=== PATIENT | male | born 2005 | race Hispanic/Latino ===

== ENCOUNTER 2024-06-25 13:33 | Emergency (ER) | payer OTHER, SELFPAY ==
[2024-06-25 13:47] VITALS: BP 109/59; PULSE 65; RESP 16; TEMP 36.5; O2SAT 100; BMI 27.8
[2024-06-25 14:22] LABS: Strep Grp A by PCR Rapid Negative (Negative)
--- NOTE | 2024-06-25 14:51 | ED.URI ---
HPI - URI/Sore Throat General Chief Complaint: Upper Respiratory Symptoms Stated Complaint: Sore Throat, Pain, Swollen Tonsils Time Seen by Provider: 06/25/24 14:23 Source: patient Mode of arrival: Ambulatory History of Present Illness HPI Narrative: 19-year-old male has complaint of dry cough with some sore throat symptoms, had difficulty with some breathing last night, no use of inhalers, no history of asthma or chronic lung disease. No known exposure to persons known to have COVID or strep throat or influenza. [id number] Tylenol and Motrin helping some with the pain, though persisting. No trouble moving neck. No trouble swallowing. No change in voice. No injury or trauma to the neck, nor foreign body sensation neck. Related Data Previous Rx's Medication Instructions Recorded albuterol sulfate 90 mcg/actuation 2 puff inhalation Q6H PRN 06/25/24 aerosol inhaler shortness of breath or wheezing #8.5 grams Allergies Allergy/AdvReac Type Severity Reaction Status Date / Time No Known Drug Allergies Allergy Verified 06/25/24 13:59 Review of Systems Review of Systems Narrative: see HPI Patient History Social History Smoking Status: Former smoker Smoking Status: Former smoker Substance Use Type: does not use Exam Narrative Exam Narrative: GENERAL: Well-developed patient, in mild distress. HEAD: Atraumatic. Normocephalic. EYES: Pupils equal round and reactive. Extraocular motions intact. No scleral icterus. No injection or drainage. ENT: Nose without bleeding, purulent drainage. Oropharyngeal redness without obvious exudate, symmetrical tonsils, no uvular or palatal edema, normal phonation NECK: Trachea midline. Moves neck well CARDIOVASCULAR: Regular rate and rhythm without murmurs, gallops, or rubs. RESPIRATORY: Clear to auscultation. Breath sounds equal bilaterally. No wheezes, rales, or rhonchi. GASTROINTESTINAL: Abdomen soft, non-tender, nondistended. EXTREMITIES: No edema or joint tenderness. BACK: Nontender without deformity or crepitance. No flank tenderness. nNEURO: AOx3. Grossly onfocal neuro exam SKIN: No rash or erythema of visible areas Initial Vital Signs Initial Vital Signs: Vital Signs Temperature 97.7 F 06/25/24 13:47 Pulse Rate 65 06/25/24 13:47 Respiratory Rate 16 06/25/24 13:47 Blood Pressure 109/59 L 08/27/24 13:47 Pulse Oximetry 100 06/25/24 13:47 Oxygen Delivery Method Room Air 06/25/24 13:47 Course Orders Ordered: ED Orders 06/25/24 13:56 Strep Grp A by PCR Rapid Stat Throat Culture Stat Vital Signs Vital signs: Vital Signs - 8 hr 06/25/24 13:47 06/25/24 15:13 Temperature 97.7 F Pulse Rate 65 66 Respiratory Rate 16 16 Blood Pressure 109/59 L 119/71 Pulse Oximetry 100 100 Oxygen Delivery Method Room Air Room Air MDM - URI/Sore Throat Lab Data Attestation: I reviewed the patient's lab results. Labs: Lab Results 06/25/24 Range/Units 13:56 Group A Strep (PCR) Negative (Negative) MDM Narrative Medical decision making narrative: Cough with sore throat, but some redness on exam, rapid strep screen sent from triage was negative, throat culture requested as backup. Suspect viral illness by history and exam. Discussed symptomatic treatment. Patient would like trial of inhaler to use for cough control, sent to his pharmacy. Discharged home, stable. Return precautions discussed. Discharge Plan Departure Patient Disposition: Home Clinical Impression: Upper respiratory infection, Sore throat Activity Restrictions/Additional Instructions: Cough and sore throat, no fever, some difficulty breathing last night, no wheezes or crackles on exam. Slight redness on oropharyngeal exam, rapid strep screen was negative. Throat culture requested as a backup method, though it is rare to negative rapid screens with modern testing, still there is a small chance there could be strep confirmed on throat culture backup, results in the next 48 hours. Seems more likely you have a viral illness, with component of sore throat and pharyngitis by history and examination. This is not usually require antibacterials. Excellent room-air saturation, clear lungs, consider trial of inhaler, sent to your pharmacy. Recheck symptoms in the next couple of days if not improving. Return to this/nearest emergency department for any change worsening symptoms or any concerns prior Prescriptions: New albuterol sulfate 90 mcg/actuation HFA aerosol inhaler 2 puff inhalation Q6H PRN (Reason: shortness of breath or wheezing) Qty: 8.5 0RF Stand Alone Forms: Patient Portal/API
[2024-06-25 15:13] VITALS: BP 119/71; PULSE 66; RESP 16; O2SAT 100
== END 2024-06-25 15:02 | disposition home or self-care (01) ==
PROVIDERS: Emergency Provider Emergency Medicine
DX: J06.9 Acute upper respiratory infection, unspecified (principal); Z87.891 Personal history of nicotine dependence
CPT/HCPCS: 87070; 87651; 99281; 99283